=== PATIENT | female | born 1960 | race Caucasian/White ===

== ENCOUNTER 2016-11-16 12:02 | Emergency (ER) | payer MEDICARE, BC ==
[~2016-11-16] VITALS: Ht 152.4 cm; Wt 79.4 kg
[~2016-11-16 12:02] MED LIST: ACIDTAB4 PO; ALBU8I INH; ASPI81TA82 PO; MULT-65 PO; PRIL20CA PO; TURM450C PO; VITA400C28
[2016-11-16 12:10] VITALS: BP 154/103; PULSE 70; RESP 16; TEMP 99.2; O2SAT 98
[2016-11-16] MEDS ORDERED: VENTAER INH (12:27)
[2016-11-16] MEDS ORDERED: FLUT1SPR9 EACH NARE (12:27)
--- NOTE | 2016-11-16 13:09 | PD ---
HPI Chief Complaint: Dizziness Time Seen by Provider: 12:52 Travel History International Travel<30 days: No Contact w/Intl Traveler<30days: No Traveled to known affect area: No History of Present Illness HPI This 56-year-old female is complaining of feeling weak and dizzy. 1 Month ago she had palpitations that lasted for a couple hours. Her Throat was tight. 2 days ago she had a similar episode. This morning she was feeling dizzy and lightheaded. She has not been having any chest pain. She does have palpitations at times. She has a history of pneumonia in the past she has allergies and takes ZYRTEC. 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) Psychiatric: No Reproductive: Yes (HYSTERECTOMY, D&C) Respiratory: Yes (PNEUMONIA) Pneumonia: Yes Seizures: Yes Tetanus Vaccination: > 5 Years Influenza Vaccination: Yes ?: Not Dilation and Curettage (D&C): Yes Past Surgical History Hysterectomy: Yes Other Surgery: Yes (BREAST REDUCTION) Social History Alcohol Use: Yes (RARE) Tobacco Use: No Substance Use: No Allergies-Medications (Allergen,Severity, Reaction): Coded Allergies: Amoxicillin (Verified Adverse Reaction, Intermediate, YEAST INFECTION, 11/16) Reported Meds & Prescriptions Reported Meds & Active Scripts Active Reported Ventolin Hfa 18 GM Inh (Albuterol Sulfate) 90 Mcg/Act Aer 1 Puff INH Q4H PRN Flonase Allergy Relief Children Nasal [place] (Fluticasone Nasal [place]) 50 Mcg/ Act [place] 1 [place] EACH NARE DAILY 50 mcg/spray Review of Systems General / Constitutional: No: Fever, Chills Eyes: No: Diploplia HENT: Positive: Lightheadedness, No: Headaches Cardiovascular: Positive: Palpitations, No: Chest Pain or Discomfort Respiratory: No: Shortness of Breath Gastrointestinal: Positive: Nausea, No: Vomiting Genitourinary: No: Frequency Musculoskeletal: No: Myalgias Neurologic: Positive: Weakness Endocrine: No: Cold Intolerance Physical Exam Narrative GENERAL: Well-developed female SKIN: Warm and dry. HEAD: Atraumatic. Normocephalic. EYES: Pupils equal and round. No scleral icterus. No injection or drainage. ENT: No nasal bleeding or discharge. Mucous membranes pink and moist. NECK: Trachea midline. No JVD. CARDIOVASCULAR: Regular rate and rhythm. No murmur appreciated. RESPIRATORY: No accessory muscle use. Clear to auscultation. Breath sounds equal bilaterally. GASTROINTESTINAL: Abdomen soft, non-tender, nondistended. Hepatic and splenic margins not palpable. MUSCULOSKELETAL: No obvious deformities. No clubbing. No cyanosis. No edema. NEUROLOGICAL: Awake and alert. No obvious cranial nerve deficits. Motor grossly within normal limits. Normal speech. PSYCHIATRIC: Appropriate mood and affect; insight and judgment normal. Data Data Last Documented VS Vital Signs Date Time Temp Pulse Resp B/P Pulse Ox O2 Delivery O2 Flow Rate FiO2 11/16/16 12:22 70 11/16/16 12:10 99.2 16 154/103 98 Orders Electrocardiogram (11/16/16 13:02) Complete Blood Count With Diff (11/16/16 13:02) Comprehensive Metabolic Panel (11/16/16 13:02) Troponin I (11/16/16 13:02) Urinalysis - C+S If Indicated (11/16/16 13:02) Magnesium (Mg) (11/16/16 13:02) Thyroid Stimulating Hormone (11/16/16 13:02) Labs Laboratory Tests Test 11/16/16 13:15 White Blood Count 6.8 TH/MM3 Red Blood Count 4.61 MIL/MM3 Hemoglobin 13.9 GM/DL Hematocrit 40.7 % Mean Corpuscular Volume 88.2 FL Mean Corpuscular Hemoglobin 30.1 PG Mean Corpuscular Hemoglobin 34.1 % Concent Red Cell Distribution Width 11.7 % Platelet Count 255 TH/MM3 Mean Platelet Volume 8.3 FL Neutrophils (%) (Auto) 65.9 % Lymphocytes (%) (Auto) 24.7 % Monocytes (%) (Auto) 8.2 % Eosinophils (%) (Auto) 1.0 % Basophils (%) (Auto) 0.2 % Neutrophils # (Auto) 4.4 TH/MM3 Lymphocytes # (Auto) 1.7 TH/MM3 Monocytes # (Auto) 0.6 TH/MM3 Eosinophils # (Auto) 0.1 TH/MM3 Basophils # (Auto) 0.0 TH/MM3 CBC Comment DIFF FINAL Differential Comment Sodium Level 144 MEQ/L Potassium Level 3.7 MEQ/L Chloride Level 106 MEQ/L Carbon Dioxide Level 30.6 MEQ/L Anion Gap 7 MEQ/L Blood Urea Nitrogen 11 MG/DL Creatinine 0.72 MG/DL Estimat Glomerular Filtration 83 ML/MIN Rate Random Glucose 158 MG/DL Calcium Level 8.9 MG/DL Magnesium Level 2.3 MG/DL Total Bilirubin 0.3 MG/DL Aspartate Amino Transf 11 U/L (AST/SGOT) Alanine Aminotransferase 30 U/L (ALT/SGPT) Alkaline Phosphatase 57 U/L Troponin I LESS THAN 0.02 NG/ML Total Protein 7.7 GM/DL Albumin 3.6 GM/DL Thyroid Stimulating Hormone 2.220 uIU/ML 3rd Gen [facility] Medical Decision Making Medical Screen Exam Complete: Yes Emergency Medical Condition: Yes Medical Record Reviewed: Yes Differential Diagnosis Differential includes palpitations, dysrhythmia, electrolyte imbalance, hyperthyroidism Narrative Course EKG shows normal sinus rhythm. Lab work is essentially unremarkable. Sugar is slightly elevated. Patient is stable for discharge she is to follow-up with her own medical doctor we have not determined the cause of her symptoms. She has been having palpitations and I told her when she has palpitations she should seek medical treatment Diagnosis Primary Impression: Palpitations Additional Instructions: Follow-up with your own medical doctor, return if palpitations recur Disposition: 01 DISCHARGE HOME Condition: Stable Stas Schuler MD Nov 16, 2016 13:09
[2016-11-16 13:27] LABS: AUTOMATED NEUTROPHIL # 4.4 TH/MM3 (1.8-7.7); BASOPHIL % 0.2 % (0.0-2.0); EOSINOPHIL # 0.1 TH/MM3 (0-0.4); HEMATOCRIT 40.7 % (35.0-46.0); HEMO FLAGS DIFF FINAL; LYMPH % 24.7 % (9.0-44.0); LYMPHOCYTE # 1.7 TH/MM3 (1.0-4.8); MEAN CELL VOLUME 88.2 FL (80.0-100.0); MEAN CORPUSCULAR HEMOGLOBIN 30.1 PG (27.0-34.0); MEAN CORPUSCULAR HGB CONC 34.1 % (32.0-36.0); MONO % 8.2 % (0.0-8.0); NEUT % 65.9 % (16.0-70.0); PLATELET COUNT 255 TH/MM3 (150-450); RED BLOOD COUNT 4.61 MIL/MM3 (4.00-5.30); RED CELL DISTRIBUTION WIDTH 11.7 % (11.6-17.2); WHITE BLOOD COUNT 6.8 TH/MM3 (4.0-11.0)
[2016-11-16 13:35] LABS: CHLORIDE 106 MEQ/L (98-107); POTASSIUM 3.7 MEQ/L (3.5-5.1); SODIUM (NA) 144 MEQ/L (136-145)
[2016-11-16 13:39] LABS: ANION GAP 7 MEQ/L (5-15); BICARBONATE 30.6 MEQ/L (21.0-32.0); BLOOD UREA NITROGEN 11 MG/DL (7-18); MAGNESIUM 2.3 MG/DL (1.5-2.5)
[2016-11-16 13:42] LABS: ALT (GPT) 30 U/L (10-53); AST (GOT) 11 U/L (15-37); GLOMERULAR FILTRATION RATE 83 ML/MIN (>89)
[2016-11-16 13:44] LABS: TOTAL BILIRUBIN ADULT 0.3 MG/DL (0.2-1.0)
[2016-11-16 13:45] LABS: ALKALINE PHOSPHATASE 57 U/L (45-117)
[2016-11-16 14:45] VITALS: BP 143/81
--- NOTE | 2016-11-18 12:41 | EKG ---
Date Performed: 11/16/2016 Time Performed: 12:21:28 PTAGE: 56 years EKG: Sinus rhythm Since previous tracing, no significant change noted Normal ECG PREVIOUS TRACING : 02/06/2011 22.02 DOCTOR: Siri Funez Interpretating Date/Time 11/18/2016 12:39:57
== END 2016-11-16 14:46 | disposition home or self-care (01) ==
LOC: PHED 12:02
DX: R00.2 Palpitations (principal); J45.909 Unspecified asthma, uncomplicated; M79.7 Fibromyalgia; I10 Essential (primary) hypertension; R53.1 Weakness
CPT/HCPCS: 80053; 83735; 84443; 84484; 85025; 93005